=== PATIENT | female | born 1965 | race Caucasian/White ===

== ENCOUNTER 2017-06-15 09:11 | Outpatient (CLI) | payer BC ==
--- NOTE | 2017-06-15 15:19 | NM ---
WHOLE BODY BONE SCAN: HISTORY: A 52-year-old female with disorder of bone, unspecified. RADIOPHARMACEUTICAL: 33 mCi Technetium 99m-MDP injected intravenously. FINDINGS: No exams available for comparison or correlation. There is a small focal area of mildly increased uptake in the posterior aspect of the left 4th rib. There is increased uptake and some degenerative changes in the shoulders, acromioclavicular joints, elbows, wrists, and feet. No other abnormal areas of tracer localization are seen in the skeleton. Tracer excretion through the kidneys within normal limits. IMPRESSION: Focus of mildly increased uptake in the left 4th rib is a nonspecific finding and may be due to trau ma, infection, or neoplasm. Correlation with CT scan would be helpful. POS: [facility]
== END 2017-06-15 09:12 | disposition home or self-care (01) ==
LOC: NM 09:11
PROVIDERS: ATTEND Specialist
DX: M89.9 Disorder of bone, unspecified (principal)
CPT/HCPCS: 78306; A9503